=== PATIENT | female | born 2000 | race Caucasian/White ===

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

== ENCOUNTER 2021-06-30 19:59 | Emergency (ER) | payer OTHER, SELFPAY ==
[2021-06-30] VITALS (12 sets, daily range): BP systolic 115–135; BP diastolic 57–105; PULSE 84–118; RESP 14–26; TEMP 36.1; O2SAT 95–100
--- NOTE | 2021-06-30 20:30 | PC.NURSE ---
Pt reports hx of migraines - sees neuro at [facility]. Had recent MRI of brain. started on Rizatriptan 10 mg PO for migraines and took 1st dose of PRN med today approx 1630. After that, became dizzy, vomited x 1. reports SANDERS is improved but not totally resolved. ambulatory c steady, even, unassisted gait to ED 3. skin pwd. no s/s of distress. family member at bedside.
[2021-06-30] MEDS: SODIUM CHLORIDE 0.9% IV 1,000 ML 999 ML IV CONT (21:24)
[2021-06-30] MEDS: KETOROLAC 15 MG/ML VIAL (*BKC) IV PUSH (21:25)
[2021-06-30] MEDS: PROCHLORPERAZINE EDISYLATE 10 MG/2 ML VIAL IV PUSH (21:25)
--- NOTE | 2021-06-30 22:07 | ED.HA ---
HPI - Headache General Chief Complaint: Headache Stated Complaint: headache Time Seen by Provider: 06/30/21 20:44 Source: patient History of Present Illness HPI Narrative: Patient reports a history of migraines and presents with a headache that is similar to her prior migraines. Pain is achy, constant, worse with bright lights or loud noises. Reports she has sees a neurologist and has been on propranolol in the past 5 to 6 months. She was also recently started on triptan therapy for breakthrough migraines. She took her 1st dose today and felt lightheaded and nauseous and it had minimal impact on her headache. She was concerned for the side effects of her medication and persistent headache so she came to the ER for evaluation. She denies any focal numbness or weakness she denies any changes in vision she denies any trauma she denies any recent spinal instrumentation Related Data Home Medications Medication Instructions Recorded Confirmed norgestimate-ethinyl estradiol 1 tablet PO DAILY 08/17/19 04/27/20 [Tri-Sprintec (28)] propranolol 20 mg PO BID 06/30/21 rizatriptan 10 mg PO DAILY PRN 06/30/21 Allergies Allergy/AdvReac Type Severity Reaction Status Date / Time No Known Allergies Allergy Unknown Verified 06/30/21 20:05 Review of Systems Review of Systems: CONSTITUTIONAL: Denies fever, chills, or sweats. EYES: Denies visual changes, redness, or discharge. ENT: Denies rhinorrhea, congestion, sore throat, or otalgia. CARDIOVASCULAR: Denies chest pain, palpitations, or edema. RESPIRATORY: Denies cough or dyspnea. GASTROINTESTINAL: Denies abdominal pain, or diarrhea. GENITOURINARY: Denies dysuria or hematuria. SKIN: Denies rash or itching. MUSCULOSKELETAL: Denies back pain, joint pain, or myalgia. NEUROLOGIC: Denies numbness, or weakness. PSYCHIATRIC: Denies anxiety or depression. All systems reviewed & are unremarkable except as noted in HPI and below PMFSH Past Medical History Medical History (Updated 07/01/21 @ 00:00 by Background Dalexi) Migraine Surgical History Surgical History No significant past surgical history Family History Family History Grandparent Diabetes mellitus Social History Social History Smoking status: Never smoker Second hand tobacco smoke exposure: No Alcohol intake: never Substance use: never Gender identity (if verbalized by the patient): Female Exam Narrative: GENERAL: Well-appearing, well-nourished, and in no acute distress. HEAD: Normocephalic, atraumatic. EYES: PERRLA and EOMI. ENT: Nares clear, no rhinorrhea or epistaxis. Mucous membranes moist. NECK: Supple. No masses. No JVD EXTREMITIES: Normal range of motion. No edema. SKIN: Warm, dry, no rash. NEURO: Cranial nerves II through XII are intact patient has 5 out of 5 strength in all extremities sensation intact to light touch in all extremities alert and oriented x3. PSYCH: Normal mood and affect. Course Reevaluation(s) Reevaluation #1: Patient reports feeling much improved after supportive therapies. Feels she can manage her symptoms at home. Date: 06/30/21 Time: 22:09 Vital Signs Vital signs: Vital Signs Temperature 36.1 C L 06/30/21 20:02 Pulse Rate 118 H 06/30/21 20:02 Respiratory Rate 18 06/30/21 20:02 Blood Pressure 131/86 06/30/21 20:02 Pulse Oximetry 97 06/30/21 20:02 Temperature 36.1 C L 06/30/21 20:02 Pulse Rate 90 06/30/21 22:18 Respiratory Rate 21 H 06/30/21 22:18 Blood Pressure 117/57 L 06/30/21 22:18 Pulse Oximetry 100 06/30/21 22:18 MDM - Headache MDM Narrative Medical decision making narrative: H&P as above, vss, pt looks clinically well, exam without focal neurological deficits,labs/img considered, symptomatic relief available as needed, on reevaluation pt continues to looks clinic
== END 2021-06-30 22:46 | disposition home or self-care (01) ==
PROVIDERS: Emergency Provider Emergency Medicine; PCP Pediatrics Adolescent Medicine
DX: R51.9 Headache, unspecified (principal)
CPT/HCPCS: 81025; 96365; 96375; 99284; J0131; J0780; J1885; J7030

== ENCOUNTER 2023-05-15 16:48 | Emergency (ER) | payer OTHER, SELFPAY ==
[2023-05-15 16:58] VITALS: BP 145/83; PULSE 83; RESP 16; TEMP 36.4; O2SAT 100
[2023-05-15 17:03] VITALS: BP 145/83; PULSE 83; RESP 16; TEMP 36.4; O2SAT 100
--- NOTE | 2023-05-15 17:07 | ED.ABDPAIN ---
HPI - Abdominal Pain General Chief Complaint: Urogenital-Female Stated Complaint: UTI History of Present Illness HPI narrative: Pt is a 22 y/o female, presents to with 2 week hx of urinary urgency, increased frequency and dysuria at the end of urinary stream, without associated fevers, flank pain or vomiting. She is taking Azo for symptom relief without resolution. LMP 3 weeks ago. She denies concerns for STI or new sexual partners, she has no abnormal vaginal discharge. Related Data Home Medications Medication Instructions Recorded Confirmed norgestimate-ethinyl estradiol 1 tablet PO DAILY 08/17/19 05/15/23 0.18 mg/0.215mg/0.25mg-35 mcg(28)tablet (Tri-Sprintec (28)) rizatriptan 10 mg tablet 10 mg PO DAILY PRN Headache 06/30/21 05/15/23 amitriptyline 05/15/23 05/15/23 topiramate 50 mg tablet mg 05/15/23 Allergies Allergy/AdvReac Type Severity Reaction Status Date / Time No Known Allergies Allergy Unknown Verified 05/15/23 17:02 Review of Systems Genitourinary: Genitourinary: Reports no additional female genitourinary complaints and Reports as per [facility] Past Medical History Medical History (Updated 05/15/23 @ 17:19 by HEMA Lancaster) Migraine Surgical History Surgical History No significant past surgical history Family History Family History Grandparent Diabetes mellitus Social History Social History Smoking status: Never smoker Second hand tobacco smoke exposure: No Alcohol intake: never Substance use: never Living arrangements: with family Occupation/Education: student Gender identity (if verbalized by the patient): Female Exam Const: General: healthy appearing, no acute distress and alert Nutritional Appearance: well nourished Orientation/consciousness: patient oriented x3 Limitations: no limitations HENMT: Head: normal to inspection Face and sinus: normal facial exam Eyes: Conjunctivae: conjunctivae normal EOM: EOMs intact bilaterally Neck: Neck: normal visual inspection Resp: Effort & Inspection: normal respiratory effort Auscultation: clear to auscultation bilaterally Cardio: Rate: regular rate Rhythm: regular rhythm GI: GI Palp: Yes Soft to palpation, No Tenderness to palpation present (GI), No Guarding due to palpation present (GI), No Rigid due to palpation, No Hernia present, No Palpable mass present and No Rebound tenderness present : General: Yes bladder normal to palpation and Yes no CVA tenderness Skin: General skin exam: normal color Rashes: no rashes Neuro: General: patient oriented x3, moves all extremities, no meningeal signs, no focal motor deficits and CN's II-XI intact bilaterally Cranial nerves: Yes Nystagmus not present Speech: normal speech Gait exam (Neuro): Normal gait present Course Course Emergency Course: urine dip likely skewed secondary to Azo, trace leuks, + nitrites, no glucose, HCG neg. Plan to send urine culture, treat with Macrobid, FU with PCP or [facility] if symptoms are not improving. Level of Care: Express Care Visit ([id number]) Vital Signs Vital signs: Vital Signs Temperature 36.4 C 05/15/23 16:58 Pulse Rate 83 05/15/23 16:58 Respiratory Rate 16 05/15/23 16:58 Blood Pressure 145/83 H 05/15/23 16:58 Pulse Oximetry 100 05/15/23 16:58 Oxygen Delivery Room Air 05/15/23 16:58 Temperature 36.4 C 05/15/23 17:03 Pulse Rate 83 05/15/23 17:03 Respiratory Rate 16 05/15/23 17:03 Blood Pressure 145/83 H 05/15/23 17:03 Pulse Oximetry 100 05/15/23 17:03 Oxygen Delivery Room Air 05/15/23 17:03 MDM - Abdominal Pain MDM Narrative Medical decision making narrative: Macrobid, urine culture pending, FU with PCP or OBGYN if symptoms are not improving in 3 days, ER if fevers, flank pain or vomiting arise. D
== END 2023-05-15 17:23 | disposition home or self-care (01) ==
PROVIDERS: Emergency Provider Nurse Practitioner Family
DX: R30.0 Dysuria (principal)
CPT/HCPCS: 81003; 81025; 87086; 99213; G0463

== ENCOUNTER 2023-07-05 11:29 | Emergency (ER) | payer OTHER, SELFPAY ==
--- NOTE | 2023-07-05 11:40 | ED.URI ---
HPI - URI/Sore Throat General Chief Complaint: Upper Respiratory Infection Stated Complaint: Cough Time Seen by Provider: 07/05/23 11:48 Source: patient and RN notes reviewed Mode of arrival: ambulatory Limitations: no limitations History of Present Illness HPI Narrative: 23-year-old female presents concern for 3-4 day history of chest congestion, cough, sore throat, nasal congestion rhinorrhea. Reports she has been taking DayQuil and NyQuil and Tylenol ibuprofen. MD elicited complaint: cough and sore throat Related Data Home Medications Medication Instructions Recorded Confirmed norgestimate-ethinyl estradiol 1 tablet PO DAILY 08/17/19 05/15/23 0.18 mg/0.215mg/0.25mg-35 mcg(28)tablet (Tri-Sprintec (28)) rizatriptan 10 mg tablet 10 mg PO DAILY PRN Headache 06/30/21 05/15/23 amitriptyline 05/15/23 05/15/23 topiramate 50 mg tablet mg 05/15/23 Allergies Allergy/AdvReac Type Severity Reaction Status Date / Time No Known Allergies Allergy Unknown Verified 07/05/23 11:45 Review of Systems Review of Systems: CONSTITUTIONAL: Reports malaise EYES: Denies visual changes, redness, or discharge. ENT: Reports rhinorrhea, congestion, and sore throat. CARDIOVASCULAR: Denies chest pain, palpitations, or edema. RESPIRATORY: Reports cough. Denies dyspnea. GASTROINTESTINAL: Denies abdominal pain, nausea, vomiting, diarrhea SKIN: Denies rash or itching. MUSCULOSKELETAL: Denies myalgia. NEUROLOGIC: Denies headache. All systems reviewed & are unremarkable except as noted in HPI and below PMFSH Past Medical History Medical History (Updated 07/05/23 @ 11:53 by Mahi Bui NP) Migraine Surgical History Surgical History No significant past surgical history Family History Family History Grandparent Diabetes mellitus Social History Social History Smoking status: Never smoker Second hand tobacco smoke exposure: No Alcohol intake: never Substance use: never Living arrangements: with family Occupation/Education: student Gender identity (if verbalized by the patient): Female Comments At time of signature, agree with nursing past medical, surgical, social and family history. There is no relevant family history pertinent to the presenting complaint Exam Narrative: GENERAL: Well-appearing, well-nourished, and in no acute distress. HEAD: Normocephalic EYES: PERRLA, conjunctivae clear ENT: Nares clear, turbinates edematous and erythematous, clear discharge. Mucous membranes moist. Right TM erythematous, left TM pearly simpson with sharp light reflex; no tragal tenderness. Oropharynx erythematous without lesions. Tonsils not enlarged and without exudate, no drooling, no hoarseness, no trismus, uvula midline. NECK: Supple. No lymphadenopathy CHEST: Clear to auscultation, breath sounds equal. No wheezing, rhonchi, rales, or stridor. No respiratory distress, speaks in full sentences. HEART: Regular rate and rhythm. No murmur heard. SKIN: Warm, dry, no rash. NEURO: Alert and oriented x3. PSYCH: Normal mood and affect Course Course Emergency Course: Patient is aware of diagnosis, understands and agrees to treatment plan. Anticipatory guidance given. Patient agrees to follow-up as directed and is aware of reasons to seek care at the emergency department. Portions of this record may have been created with voice recognition software Level of Care: Express Care Visit Vital Signs Vital signs: Reviewed. MDM - URI/Sore Throat MDM Narrative Medical decision making narrative: Differential diagnosis considered: Paez virus, strep pharyngitis, allergic rhinitis, upper respiratory tract infection, sinusitis, rhinosinusitis, nasopharyngitis. viral pharyngitis, otitis media, otitis externa, pneumonia, bronchitis, viral cough syndrome, v
[2023-07-05 11:42] VITALS: BP 123/75; PULSE 103; RESP 18; TEMP 37.6; O2SAT 98
== END 2023-07-05 12:05 | disposition home or self-care (01) ==
PROVIDERS: Emergency Provider Nurse Practitioner; PCP Nurse Practitioner
DX: H66.90 Otitis media, unspecified, unspecified ear (principal); J06.9 Acute upper respiratory infection, unspecified; Z20.822 Contact with and (suspected) exposure to COVID-19
CPT/HCPCS: 87081; 87426; 87880; 99213; C9803; G0463

== ENCOUNTER 2024-09-28 16:30 | Emergency (ER) | payer OTHER, SELFPAY ==
[2024-09-28 16:37] VITALS: BP 116/68; PULSE 109; RESP 20; TEMP 38.4; O2SAT 100
--- NOTE | 2024-09-28 16:47 | ED.URI ---
HPI - URI/Sore Throat General Chief Complaint: Upper Respiratory Infection Stated Complaint: Bodyaches/Sinus Time Seen by Provider: 09/28/24 16:47 Source: patient, RN notes reviewed and old records reviewed Mode of arrival: ambulatory Limitations: no limitations History of Present Illness HPI Narrative: Patient presents with complaints of flu-like symptoms that began earlier today. She took DayQuil this morning, but has not had any medications since. Related Data Home Medications ?Medication ?Instructions ?Recorded ?Confirmed ?Last Taken ?Type norgestimate-ethinyl estradiol 1 tablet PO DAILY 08/17/19 05/15/23 Unknown History 0.18 mg/0.215mg/0.25mg-35 mcg(28)tablet (Tri-Sprintec (28)) amitriptyline 05/15/23 05/15/23 Unknown History topiramate 50 mg tablet mg 05/15/23 Unknown History propranolol 10 mg tablet mg 09/28/24 Unknown History Allergies Allergy/AdvReac Type Severity Reaction Status Date / Time No Known Allergies Allergy Unknown Verified 09/28/24 16:35 Review of Systems Review of Systems: All systems reviewed & are unremarkable except as noted in HPI and below Constitutional: Constitutional: Reports no additional constitutional complaints, Reports body ache(s), Reports fever(s), Reports headache(s) and Reports lethargy ENT: Reports system reviewed and no additional complaints, except as documented, Reports nasal congestion, Reports nasal discharge and Reports sinus pressure Cardiovascular: Cardiovascular: Reports no additional cardiovascular complaints Respiratory: Respiratory: Reports no additional respiratory complaints and Reports cough Gastrointestinal: Gastrointestinal: Reports no additional gastrointestinal complaints and Reports nausea Musculoskeletal: Musculoskeletal: Reports myalgias PMFSH Past Medical History Medical History (Updated 09/28/24 @ 17:00 by Flor Gibbons APRN) Migraine Surgical History Surgical History No significant past surgical history Family History Family History Grandparent Diabetes mellitus Social History Social History Smoking status: Never smoker Second hand tobacco smoke exposure: No Alcohol intake: never Substance use: never Living arrangements: with family Occupation/Education: student Gender identity (if verbalized by the patient): Female Comments At the time of my signature, I reviewed and agree with the nursing past medical, surgical, social, and family history. There is no relevant family history pertinent to the patient complaint. Exam Const: General: cooperative, no acute distress, alert and awake Orientation/consciousness: oriented to person, oriented to place and oriented to time HENMT: Head: normal to inspection Resp: Effort & Inspection: normal respiratory effort and able to speak in complete sentences Auscultation: clear to auscultation bilaterally, no crackles, no rales, no rhonchi and no wheezes Cardio: Palpation: normal PMI Rate: regular rate Rhythm: regular rhythm Heart sounds: S1 normal heart sound present and S2 normal heart sound present GI: Auscultation: normal bowel sounds Neuro: General: oriented to person, oriented to place and oriented to time Cranial nerves: Yes CN's II-XII intact bilaterally Psych: Appearance: grossly normal Thought process: Normal thought process present Insight: Good insight present (Psych) Judgement: Good judgement present (Psych) Course Course Level of Care: Express Care Visit Vital Signs Vital signs: Vital Signs Temperature 101.2 F H 09/28/24 16:37 Pulse Rate 109 H 09/28/24 16:37 Respiratory Rate 20 09/28/24 16:37 Blood Pressure 116/68 09/28/24 16:37 Pulse Oximetry 100 09/28/24 16:37 Oxygen Delivery Room Air 09/28/24 16:37 Temperature 101.2 F H 09/28/24 16:37 Pulse Rate 109 H 09/28/24 16:37 Respiratory Rate 20 09/28/24 16:37 Blood Pressure 116/68 09/28/24 16:37 Pulse Oximetry 100 09/28/24 16:37 Oxygen Delivery Room Air 09/28/24 16:37 Reviewed MDM - URI/Sore Throat MDM Narrative Medical decision making narrative: Reassuring physical exam. Positive influenza. Patient opts to start, flow. Supportive care measures discussed at length. Discharge instructions reviewed with patient, as well as provided in writing per nursing staff. The instructions also include specific and strict return/GO TO THE ER as well as f/u information. All questions have been answered, and the patient deny any further questions with discharge and discharge plan. Some parts of this dictation were generated by voice recognition software and may contain typographical and/or grammatical inaccuracies. Differential Diagnosis Differential diagnosis: Likely upper respiratory infection, viral infection, bronchitis and influenza Medical Records Attestation: I reviewed the patient's medical records. Lab Data Attestation: I reviewed the patient's lab results. Discharge Plan Discharge Clinical Impression: Influenza Patient Disposition: Home, Self-Care Condition: Stable Instructions: Antibiotic Form, Influenza (ED) Additional Instructions: Take medications as prescribed. Treat symptoms with [id number] medications. Please follow package instructions. Patient Language: Mongolian Prescriptions: New oseltamivir [Tamiflu] 75 mg capsule 75 mg PO Q12H 5 Days Qty: 10 0RF ondansetron 4 mg tablet,disintegrating 4 mg PO Q6H PRN (Reason: nausea and vomiting) Qty: 14 0RF No Action norgestimate-ethinyl estradiol [Tri-Sprintec (28)] 0.18/0.215/0.25 mg-35 mcg (28) tablet 1 tablet PO DAILY topiramate 50 mg tablet amitriptyline propranolol 10 mg tablet Follow-up/Referrals: Kathy,LUIS EDUARDO Eaton [Primary Care Provider] - 2 Weeks Stand Alone Forms: Work/School Release IP Time of Disposition: 17:01
[2024-09-28 16:58] LABS: EDCOVIDSCREEN Negative (Negative); EDINFLUASCREEN Positive (Negative); EDINFLUBSCREEN Negative (Negative)
== END 2024-09-28 17:09 | disposition home or self-care (01) ==
PROVIDERS: Emergency Provider Nurse Practitioner Family; PCP Nurse Practitioner
DX: J10.1 Influenza due to other identified influenza virus with other respiratory manifestations (principal); Z20.822 Contact with and (suspected) exposure to COVID-19
CPT/HCPCS: 87426; 87804; 99213; G0463